=== PATIENT | male | born 1965 | race Caucasian/White ===

== ENCOUNTER 2018-10-21 11:31 | Emergency (ER) | payer SELFPAY ==
[~2018-10-21] VITALS: Ht 188 cm; Wt 95.3 kg
[2018-10-21 11:48] VITALS: BP 127/86
[2018-10-21 15:00] LABS: Basophils # (auto) 0 uL; Basophils % (auto) 0.8 % (0.0-2.0); Eosinophils # (auto) 0.2 uL; Eosinophils % (auto) 2.6 % (0.0-7.0); Hematocrit 43.1 % (41.0-53.0); Hemoglobin 14.4 g/dL (13.5-17.5); Lymphocytes # (auto) 1.3 uL; Mean Corpuscular Hemoglobin 30.1 pg (28.0-32.0); Mean Corpuscular Hgb Conc. 33.4 g/dL (32.0-36.0); Mean Corpuscular Volume 90.2 fL (80.0-100.0); Monocytes # (auto) 0.5 uL; Monocytes % (auto) 8.3 % (0.0-12.0); Neutrophils # (auto) 3.8 uL; Neutrophils % (auto) 65.3 % (37.0-80.0); Nucleated Red Blood Cells % 0.1 %; Platelet Count (auto) 269 10^3/uL (140-450); Red Blood Cells 4.77 10^6/uL (4.5-5.90); Red Cell Distribution Width 14.7 % (11.8-14.3); White Blood Cell 5.8 10^3/uL (4.4-10.8)
[2018-10-21 15:20] LABS: Albumin 3.3 g/dL (3.4-5.0); Anion Gap 3 (5-15); Blood Urea Nitrogen 22 mg/dL (7-18); Calcium 8.2 mg/dL (8.5-10.1); Carbon Dioxide 26 mmol/L (21-32); Chloride 109 mmol/L (98-107); Glucose 126 mg/dL (74-106); Potassium 4.6 mmol/L (3.5-5.1); Sodium 138 mmol/L (136-145)
[2018-10-21 15:27] LABS: Alanine Aminotransferase 19 U/L (16-61); Alkaline Phosphatase 155 U/L (45-117); Aspartate Aminotransferase 19 U/L (15-37); BUN/Creatinine Ratio 10.1; Bilirubin, Total 0.3 mg/dL (0.2-1.0); GFR African American 41 mL/min; GFR Non-African American 34 mL/min; Total Protein 7.3 g/dL (6.4-8.2)
== END 2018-10-21 23:40 | disposition left against medical advice (07) ==
LOC: ER 11:31
CPT/HCPCS: 36415; 74176; 80053; 84484; 85025

== ENCOUNTER 2018-11-11 12:30 | Emergency (ER) | payer MEDICAID ==
[~2018-11-11] VITALS: Ht 188 cm; Wt 95.3 kg
[2018-11-11 12:45] VITALS: BP 108/73
== END 2018-11-11 16:23 | disposition left against medical advice (07) ==
LOC: ER 12:30
DX: R03.0 Elevated blood-pressure reading, without diagnosis of hypertension (principal); R73.9 Hyperglycemia, unspecified; Z53.21 Procedure and treatment not carried out due to patient leaving prior to being seen by health care provider
CPT/HCPCS: 82962

== ENCOUNTER 2018-12-16 13:05 | Inpatient (IN) | payer MEDICAID | END 2018-12-29 00:20 | disposition short-term general hospital (02) | LOC: ICU WEST 12-17 00:29 → TELE-EAST 12-24 10:53 → WEST WING 12-25 11:45 → ER 13:05 → TELE-WESTW 12-24 20:05 → TELE 17:11 | PROC: 5A1945Z Respiratory Ventilation, 24-96 Consecutive Hours (ICD-10-PCS; 2018-12-18 10:15) | PROC: 0BH17EZ Insertion of Endotracheal Airway into Trachea, Via Natural or Artificial Opening (ICD-10-PCS; 2018-12-18 10:15) | PROC: 0DJD8ZZ Inspection of Lower Intestinal Tract, Via Natural or Artificial Opening Endoscopic (ICD-10-PCS; 2018-12-18 10:15) | PROC: 0DJ08ZZ Inspection of Upper Intestinal Tract, Via Natural or Artificial Opening Endoscopic (ICD-10-PCS; principal; 2018-12-18 12:10) | DX: J96.00 Acute respiratory failure, unspecified whether with hypoxia or hypercapnia (principal); R57.8 Other shock; A41.01 Sepsis due to Methicillin susceptible Staphylococcus aureus; E43 Unspecified severe protein-calorie malnutrition; K85.80 Other acute pancreatitis without necrosis or infection; J18.9 Pneumonia, unspecified organism; E11.22 Type 2 diabetes mellitus with diabetic chronic kidney disease; K92.2 Gastrointestinal hemorrhage, unspecified; E11.8 Type 2 diabetes mellitus with unspecified complications; E83.51 Hypocalcemia; K31.84 Gastroparesis; N18.3 Chronic kidney disease, stage 3 (moderate); D50.0 Iron deficiency anemia secondary to blood loss (chronic); I12.9 Hypertensive chronic kidney disease with stage 1 through stage 4 chronic kidney disease, or unspecified chronic kidney disease; F20.9 Schizophrenia, unspecified ==

== ENCOUNTER 2020-05-01 15:34 | Inpatient (IN) | payer MEDICAID ==
[~2020-05-01] VITALS: Ht 188 cm; Wt 85.5 kg
[~2020-05-01 15:34] MED LIST: ALBU1AER4 IN; BENA20TA14 PO; DULO20CA PO; GABA-339 PO; INSLANTI SC; INSLISPI SC; MECL25TA18 PO; PANT40TA2 PO
[2020-05-01 18:27] LABS: Basophils # (auto) 0.1 10 ^3/uL (0-0.2); Basophils % (auto) 1.1 % (0.0-2.0); Eosinophils # (auto) 0.2 10 ^3/uL (0-0.8); Eosinophils % (auto) 3.1 % (0.0-7.0); Hematocrit 30.2 % (41.0-53.0); Hemoglobin 9.9 g/dL (13.5-17.5); Mean Corpuscular Hemoglobin 29.8 pg (28.0-32.0); Mean Corpuscular Hgb Conc. 32.7 g/dL (32.0-36.0); Monocytes # (auto) 0.3 10 ^3/uL (0-1.3); Monocytes % (auto) 5.1 % (0.0-12.0); Neutrophils % (auto) 72.7 % (37.0-80.0); Platelet Count (auto) 280 10^3/uL (140-450); Red Blood Cells 3.32 10^6/uL (4.5-5.90); White Blood Cell 5.5 10^3/uL (4.4-10.8)
[2020-05-01 18:34] LABS: Albumin 3.5 g/dL (3.4-5.0); Anion Gap 10 (5-15); Blood Urea Nitrogen 69 mg/dL (7-18); Calcium 8.3 mg/dL (8.5-10.1); Carbon Dioxide 19 mmol/L (21-32); Chloride 100 mmol/L (98-107); Magnesium 2.2 mg/dL (1.6-2.6); Sodium 129 mmol/L (136-145)
[2020-05-01 18:37] LABS: Alanine Aminotransferase 27 U/L (16-61); Aspartate Aminotransferase 17 U/L (15-37); Bilirubin, Total 0.4 mg/dL (0.2-1.0); GFR African American 23 mL/min; GFR Non-African American 19 mL/min
[2020-05-01 18:43] LABS: Alkaline Phosphatase 141 U/L (45-117)
[2020-05-01 18:49] LABS: Potassium 6.4 mmol/L (3.5-5.1)
[2020-05-01 18:51] LABS: BUN/Creatinine Ratio 19.5; Glucose 608 mg/dL (74-106)
[2020-05-01] MEDS ORDERED: CALCIUM GLUC 4.65meq/50ml D5AE 50 ML IV ONE (22:00)
[2020-05-01] MEDS ORDERED: SODIUM BICARBONATE 8.4 % INJ 50ML VIAL IV ONE (22:00)
[2020-05-01] MEDS ORDERED: InsuLIN REG 1unit/0.01ml Soln (100units/ml) IV ONE (22:00)
[2020-05-01] MEDS ORDERED: SODIUM CHLORIDE 0.9% 1,000 ML IV ONE (22:00)
[2020-05-01] MEDS ORDERED: SODIUM ZIRCONIUM CYCL 10 GM PAK PO ONE (22:00)
[2020-05-01] MEDS ORDERED: ACETAMINOPHEN 325 MG TAB PO PRN (22:00)
[2020-05-01] MEDS ORDERED: TEMAZEPAM 15 MG CAP PO PRN (22:00)
[2020-05-01] MEDS ORDERED: DEXTROSE (50%) 50ML SYRG IV PRN (22:00)
[2020-05-01] MEDS ORDERED: cefTRIAXone 1GM/50ML D5W 50 ML IV ONE (22:00)
[2020-05-01] MEDS ORDERED: AZITHROMYCIN 500MG/ 250ML 250 ML IV ONE (22:00)
[2020-05-01] MEDS: ATORVASTATIN 20 MG TAB PO SCH (22:51)
[2020-05-01] MEDS: GABAPENTIN 300 MG CAP PO SCH (23:05)
[2020-05-01 23:09] LABS: Urine Bacteria NONE SEEN /hpf (None Seen); Urine Blood Negative /uL (Negative); Urine Specific Gravity 1.014 (1.001-1.035); Urine WBC 1 /hpf (0 - 3)
[2020-05-01] MEDS: SODIUM CHLORIDE 0.9% 1,000 ML IV SCH (23:13)
[2020-05-01] MEDS: ONDANSETRON HCL 4 MG/2 ML VIAL IV PRN (23:32)
[2020-05-01] MEDS: MORPHINE SULF INJ 2 MG/ML SYRINGE 1ML IV PRN (23:33)
[2020-05-02] MEDS: ACCU-CHEK COMFORT CURVE STRIP VI SCH ×3 (00:07→08:00)
[2020-05-02] MEDS: InsuLIN REG 1unit/0.01ml Soln (100units/ml) SC SCH ×3 (00:08→08:00)
[2020-05-02] MEDS: MORPHINE SULF INJ 2 MG/ML SYRINGE 1ML IV PRN ×2 (03:29→03:39)
[2020-05-02] MEDS: ONDANSETRON HCL 4 MG/2 ML VIAL IV PRN ×2 (03:29→03:39)
[2020-05-02 05:27] LABS: Eosinophils # (auto) 0.2 10 ^3/uL (0-0.8); Lymphocytes # (auto) 1.3 10 ^3/uL (0.4-5.4); Mean Corpuscular Volume 87.8 fL (80.0-100.0); Monocytes # (auto) 0.4 10 ^3/uL (0-1.3)
[2020-05-02 05:29] LABS: Basophils # (auto) 0 10 ^3/uL (0-0.2); Basophils % (auto) 0.8 % (0.0-2.0); Hematocrit 23.5 % (41.0-53.0); Mean Corpuscular Hgb Conc. 34.2 g/dL (32.0-36.0); Monocytes % (auto) 8.8 % (0.0-12.0); Neutrophils # (auto) 2.4 10 ^3/uL (1.6-8.6); Neutrophils % (auto) 55.4 % (37.0-80.0); Platelet Count (auto) 248 10^3/uL (140-450); Red Blood Cells 2.67 10^6/uL (4.5-5.90); Red Cell Distribution Width 14.9 % (11.8-14.3); White Blood Cell 4.3 10^3/uL (4.4-10.8)
[2020-05-02] MEDS: GABAPENTIN 300 MG CAP PO SCH ×3 (05:31→23:06)
[2020-05-02 05:52] LABS: Anion Gap 6 (5-15); Blood Urea Nitrogen 72 mg/dL (7-18); Calcium 8.4 mg/dL (8.5-10.1); Carbon Dioxide 23 mmol/L (21-32); Chloride 108 mmol/L (98-107); Glucose 224 mg/dL (74-106); Potassium 4.1 mmol/L (3.5-5.1); Sodium 137 mmol/L (136-145)
[2020-05-02 05:57] LABS: BUN/Creatinine Ratio 21.8; GFR African American 25 mL/min; GFR Non-African American 21 mL/min
[2020-05-02] MEDS: cefTRIAXone 1GM/50ML D5W 50 ML IV SCH (09:00)
[2020-05-02] MEDS ORDERED: ASPirin 81 mg TAB PO SCH (10:00)
[2020-05-02] MEDS: NIFEdipine ER 30 MG TAB PO SCH (10:00)
[2020-05-02] MEDS: AZITHROMYCIN 500MG/ 250ML 250 ML IV SCH (10:00)
[2020-05-02] MEDS: DULoxetine HCL 30 MG CAP PO SCH (10:00)
[2020-05-02] MEDS ORDERED: PANTOPRAZOLE 40 MG TAB PO SCH (10:00)
[2020-05-02] MEDS: PANTOPRAZOLE 40 MG TAB PO SCH (10:00)
[2020-05-02] MEDS: SODIUM CHLORIDE 0.9% 1,000 ML IV SCH (11:22)
[2020-05-02] MEDS ORDERED: ACETAMINOPHEN 325 MG TAB PO PRN (11:45)
[2020-05-02] MEDS ORDERED: DEXTROSE (50%) 50ML SYRG IV PRN ×3 (11:45→23:15)
[2020-05-02] MEDS ORDERED: INSU1INJ19 SC (15:31)
[2020-05-02] MEDS ORDERED: INSU100I44 SC (15:31)
[2020-05-02] MEDS ORDERED: GABA800T97 PO (15:31)
[2020-05-02] MEDS ORDERED: DULO1CAP5 PO (15:31)
[2020-05-02] MEDS ORDERED: NIFE1TAB30 PO (15:33)
[2020-05-02] MEDS ORDERED: FINA5TAB4 PO (15:34)
[2020-05-02] MEDS ORDERED: ATOR40TA52 PO (15:34)
[2020-05-02] MEDS ORDERED: TAMS0.4C36 PO (15:34)
[2020-05-02] MEDS ORDERED: HYDR1CAP27 PO (15:35)
[2020-05-02] MEDS ORDERED: CHOL20007 PO (15:36)
[2020-05-02] MEDS ORDERED: ASPI-266 PO (15:36)
[2020-05-02] MEDS ORDERED: MULT-928 PO (15:37)
[2020-05-02] MEDS ORDERED: DIVA1TAB37 PO (15:38)
[2020-05-02] MEDS ORDERED: AMLO10TA13 PO (15:38)
[2020-05-02] MEDS ORDERED: SERT-275 PO (15:38)
[2020-05-02] MEDS ORDERED: CLOP75TA41 PO (15:39)
[2020-05-02] MEDS ORDERED: LORA0.5T20 PO (15:39)
[2020-05-02] MEDS ORDERED: LISI-648 PO (15:39)
[2020-05-02] MEDS ORDERED: TRAZ100T3 PO (15:40)
[2020-05-02] MEDS ORDERED: FLUT50SP (15:41)
[2020-05-02] MEDS ORDERED: NITR0.4S29 SL (15:42)
[2020-05-02] MEDS ORDERED: ONDA-155 PO (15:44)
[2020-05-02] MEDS ORDERED: SODIUM CHLORIDE 0.9% 1,000 ML IV SCH (16:15)
[2020-05-02] MEDS ORDERED: InsuLIN REG 1unit/0.01ml Soln (100units/ml) SC SCH ×2 (17:00→20:00)
[2020-05-02] MEDS ORDERED: ACCU-CHEK COMFORT CURVE STRIP VI SCH ×2 (17:00→20:00)
[2020-05-02] MEDS ORDERED: INSULIN LANTUS (GLARGINE) 1 /0.01ml (100units/ml) SC ONE (18:15)
[2020-05-02] MEDS: HYDROcodone-ACET 5/325MG TAB PO PRN ×2 (18:55→22:04)
[2020-05-02] MEDS: TAMSULOSIN HYDROCHLORIDE 0.4 MG CAP PO SCH (18:57)
[2020-05-02] MEDS: ATORVASTATIN 20 MG TAB PO SCH (23:05)
[2020-05-02] MEDS ORDERED: SODIUM CHLORIDE 0.9% 1,000 ML IV ONE (23:15)
[2020-05-02] MEDS ORDERED: InsuLIN R (HUMAN) 100 UNITS in SODIUM CHL 0.9% 99 ML IV SCH (23:15)
[2020-05-03] MEDS: ACCU-CHEK COMFORT CURVE STRIP VI SCH ×9 (00:34→22:08)
[2020-05-03] MEDS ORDERED: INSULIN LANTUS (GLARGINE) 1 /0.01ml (100units/ml) SC ONE (01:45)
[2020-05-03] MEDS ORDERED: DEXTROSE (50%) 50ML SYRG IV PRN (01:45)
[2020-05-03] MEDS: MORPHINE SULF INJ 2 MG/ML SYRINGE 1ML IV PRN ×2 (03:55→06:39)
[2020-05-03] MEDS: GABAPENTIN 300 MG CAP PO SCH ×3 (06:17→21:50)
[2020-05-03] MEDS: InsuLIN REG 1unit/0.01ml Soln (100units/ml) SC SCH ×4 (06:20→22:03)
[2020-05-03 08:27] LABS: Basophils # (auto) 0.1 10 ^3/uL (0-0.2); Lymphocytes # (auto) 1.6 10 ^3/uL (0.4-5.4); Monocytes # (auto) 0.4 10 ^3/uL (0-1.3)
[2020-05-03 08:31] LABS: Basophils % (auto) 1.3 % (0.0-2.0); Eosinophils # (auto) 0.2 10 ^3/uL (0-0.8); Eosinophils % (auto) 4.3 % (0.0-7.0); Hematocrit 24.2 % (41.0-53.0); Hemoglobin 8.1 g/dL (13.5-17.5); Lymphocytes % (auto) 27.2 % (10.0-50.0); Mean Corpuscular Hemoglobin 29.9 pg (28.0-32.0); Mean Corpuscular Hgb Conc. 33.6 g/dL (32.0-36.0); Mean Corpuscular Volume 89.1 fL (80.0-100.0); Monocytes % (auto) 7.3 % (0.0-12.0); Neutrophils # (auto) 3.5 10 ^3/uL (1.6-8.6); Neutrophils % (auto) 59.9 % (37.0-80.0); Nucleated Red Blood Cells % 0.1 %; Platelet Count (auto) 266 10^3/uL (140-450); Red Blood Cells 2.72 10^6/uL (4.5-5.90); Red Cell Distribution Width 15.3 % (11.8-14.3); White Blood Cell 5.8 10^3/uL (4.4-10.8)
[2020-05-03 08:55] LABS: Calcium 8.4 mg/dL (8.5-10.1)
[2020-05-03] MEDS: cefTRIAXone 1GM/50ML D5W 50 ML IV SCH (09:45)
[2020-05-03] MEDS: PANTOPRAZOLE 40 MG TAB PO SCH (10:00)
[2020-05-03] MEDS ORDERED: INSULIN LANTUS (GLARGINE) 1 /0.01ml (100units/ml) SC SCH (10:00)
[2020-05-03] MEDS: AZITHROMYCIN 500MG/ 250ML 250 ML IV SCH (10:20)
[2020-05-03] MEDS: NIFEdipine ER 30 MG TAB PO SCH (10:29)
[2020-05-03] MEDS: DULoxetine HCL 30 MG CAP PO SCH (10:29)
[2020-05-03] MEDS: ASPirin 81 mg TAB PO SCH (10:29)
[2020-05-03] MEDS: INSULIN LANTUS (GLARGINE) 1 /0.01ml (100units/ml) SC SCH (11:12)
--- NOTE | 2020-05-03 14:20 | NUR ---
Telemetry admit from [facility] admitted to Telemetry unit after SBAR received. Patient oriented to Jeni Erazo, primary RN, unit, room, bed, and unit policies regarding patient care and visiting hours. Patient now on continuous telemetry monitoring, tele box #60 and telemetry reading on arrival to unit is SR. Patient placed on bedside oxygen, weighed by bedscale and encouraged to call if they need something. All questions and concerns addressed, patient verbalized understanding. No c/o pain, no s/s of distress/sob noted/stated.
[2020-05-03] MEDS ORDERED: FUROSEMIDE 20 MG/2 ML VIAL IV ONE (16:45)
[2020-05-03] MEDS ORDERED: FUROSEMIDE 100 MG/10ML VIAL IV ONE (16:45)
--- NOTE | 2020-05-03 16:55 | NUR ---
Collected MRSA swab from left/right nare. sent to lab via bullet system. Collected and sent Urine specimen to lab via bullet system.
[2020-05-03 17:00] VITALS: BP 113/66
[2020-05-03] MEDS: TAMSULOSIN HYDROCHLORIDE 0.4 MG CAP PO SCH (18:00)
[2020-05-03 19:31] LABS: Alcohol, Urine < 3.0 mg/dL (0-10); Amphetamine Screen, Urine NEGATIVE (NEGATIVE); Barbiturate Scree,Urine NEGATIVE (NEGATIVE); Benzodiazephine Screen, Urine NEGATIVE (NEGATIVE); Cannabinoid Screen, Urine POSITIVE (NEGATIVE); Cocaine Screen, Urine NEGATIVE (NEGATIVE); Phencyclidine Screen, Urine NEGATIVE (NEGATIVE)
--- NOTE | 2020-05-03 19:34 | NUR ---
Closing Note Endorsed care to NOC RN. No s/s of distress/sob or pain noted.
[2020-05-03 19:38] LABS: Opiate Scree,Urine POSITIVE (NEGATIVE)
[2020-05-03 20:00] VITALS: BP 132/75
[2020-05-03 20:01] LABS: Calcium 8.1 mg/dL (8.5-10.1); Potassium 4.7 mmol/L (3.5-5.1)
[2020-05-03] MEDS: ATORVASTATIN 20 MG TAB PO SCH (21:50)
[2020-05-03] MEDS: HYDROcodone-ACET 5/325MG TAB PO PRN (21:51)
--- NOTE | 2020-05-03 21:57 | NUR ---
Pt refusing to wait until MN for BG check. Fingerstick done; BG 183. Insulin 4 units given per sliding scale.
[2020-05-03 22:00] VITALS: BP 132/75
[2020-05-04] VITALS (7 sets, daily range): BP systolic 133–156; BP diastolic 79–101
[2020-05-04] MEDS: InsuLIN REG 1unit/0.01ml Soln (100units/ml) SC SCH ×3 (06:00→17:13)
[2020-05-04] MEDS: GABAPENTIN 300 MG CAP PO SCH ×3 (06:00→21:42)
[2020-05-04] MEDS: ACCU-CHEK COMFORT CURVE STRIP VI SCH ×4 (06:00→23:59)
[2020-05-04 06:30] LABS: Basophils # (auto) 0 10 ^3/uL (0-0.2); Eosinophils # (auto) 0.3 10 ^3/uL (0-0.8); Eosinophils % (auto) 6.1 % (0.0-7.0); Hematocrit 25.2 % (41.0-53.0); Hemoglobin 8.5 g/dL (13.5-17.5); Lymphocytes # (auto) 1.2 10 ^3/uL (0.4-5.4); Lymphocytes % (auto) 25.1 % (10.0-50.0); Mean Corpuscular Hemoglobin 30.3 pg (28.0-32.0); Mean Corpuscular Hgb Conc. 33.9 g/dL (32.0-36.0); Mean Corpuscular Volume 89.3 fL (80.0-100.0); Monocytes # (auto) 0.4 10 ^3/uL (0-1.3); Monocytes % (auto) 9.3 % (0.0-12.0); Neutrophils # (auto) 2.7 10 ^3/uL (1.6-8.6); Neutrophils % (auto) 58.5 % (37.0-80.0); Platelet Count (auto) 239 10^3/uL (140-450); Red Blood Cells 2.82 10^6/uL (4.5-5.90); Red Cell Distribution Width 15.6 % (11.8-14.3); White Blood Cell 4.7 10^3/uL (4.4-10.8)
[2020-05-04 06:52] LABS: Calcium 8.4 mg/dL (8.5-10.1); Potassium 4.7 mmol/L (3.5-5.1)
--- NOTE | 2020-05-04 06:54 | NUR ---
Another RN checked pt's BG again as pt c/o feeling nauseous and light headed. This RN with pt having cardiac difficulties. This pt's BG now 76.
[2020-05-04 06:56] LABS: BUN/Creatinine Ratio 18.3
--- NOTE | 2020-05-04 06:59 | NUR ---
This RN called to pt's room/ his statement to another RN that he felt his BG is low. This RN entered room and pt stated he keeps his personal glucometer with him and he had found his BG was 53. This RN checked BG with hospital glucometer and registered 61. 8 oz OJ with 2 packets sugar given to pt. Pt drank juice immediately.
--- NOTE | 2020-05-04 07:49 | NUR ---
Opening Shift Note Assumed care of patient, awake and alertx4. Patient sitting on the edge of the bed, eating breakfast. No S/S of distress/SOB . Patient c/o of pain, rates it a7. Will medicate per MD orders. Instructed on POC and to call for assist PRN. Bed at lowest locked position and call light within reach. Will continue to monitor for changes Q1hr and Prn.
[2020-05-04] MEDS: DULoxetine HCL 30 MG CAP PO SCH (08:01)
[2020-05-04] MEDS: ASPirin 81 mg TAB PO SCH (08:01)
[2020-05-04] MEDS: HYDROcodone-ACET 5/325MG TAB PO PRN ×2 (08:01→15:15)
[2020-05-04] MEDS: NIFEdipine ER 30 MG TAB PO SCH (08:01)
[2020-05-04] MEDS: PANTOPRAZOLE 40 MG TAB PO SCH (08:01)
[2020-05-04] MEDS: AZITHROMYCIN 500MG/ 250ML 250 ML IV SCH (08:02)
[2020-05-04] MEDS: cefTRIAXone 1GM/50ML D5W 50 ML IV SCH (08:02)
[2020-05-04] MEDS: ONDANSETRON HCL 4 MG/2 ML VIAL IV PRN (08:09)
--- NOTE | 2020-05-04 08:30 | NUR ---
[facility]
[2020-05-04] MEDS: INSULIN LANTUS (GLARGINE) 1 /0.01ml (100units/ml) SC SCH (08:40)
--- NOTE | 2020-05-04 17:30 | NUR ---
Patient is refusing Accu checks and 1800 medication. he states, : "I don't want it, I don't need it". patient educated on importance of medication. Patient acknowledged understanding, Still refusing.
[2020-05-04] MEDS: TAMSULOSIN HYDROCHLORIDE 0.4 MG CAP PO SCH (18:00)
--- NOTE | 2020-05-04 19:10 | NUR ---
OPENING NOTE Assumed care of patient at 1900. Respiratory sounds clear, equal bilaterally and unlabored. Patient verbalized a discomfort level of 2 out of 10. However patient verbalized that this is tolerable at this time. Updated patient on POC. Bed locked in lowest position, side rails up x 2 HOB elevated at least 30 degrees and call light is within reach. Will continue to monitor.
--- NOTE | 2020-05-04 19:15 | NUR ---
OPENING NOTE Assumed care of patient at 1900. Patient's respirations equal and unlabored. Patient is resting with eyes closed at this time. Bed locked in lowest position, HOB elevated at least 30 degrees, side rails up x 2 and call light is within reach. Will continue to monitor.
--- NOTE | 2020-05-04 19:22 | NUR ---
closing note endorsed car to NOC RN.
[2020-05-04] MEDS: NITROGLYCERIN 0.4 MG SL TAB SL PRN ×3 (20:25→20:36)
[2020-05-04] MEDS: MORPHINE SULF INJ 2 MG/ML SYRINGE 1ML IV PRN (20:48)
[2020-05-04] MEDS: ATORVASTATIN 20 MG TAB PO SCH (21:42)
--- NOTE | 2020-05-04 23:04 | NUR ---
ACCU-CHECK REFUSAL Patient refused accu-check. Educated patient x 3 on importance of monitoring blood sugar however patient still reused x 3.
[2020-05-05] VITALS (7 sets, daily range): BP systolic 113–142; BP diastolic 72–85
[2020-05-05] MEDS: HYDROcodone-ACET 5/325MG TAB PO PRN (00:31)
[2020-05-05] MEDS: ACCU-CHEK COMFORT CURVE STRIP VI SCH ×3 (06:00→18:00)
[2020-05-05] MEDS: InsuLIN REG 1unit/0.01ml Soln (100units/ml) SC SCH ×4 (06:00→18:53)
[2020-05-05 06:41] LABS: Basophils # (auto) 0 10 ^3/uL (0-0.2); Basophils % (auto) 0.9 % (0.0-2.0); Eosinophils # (auto) 0.3 10 ^3/uL (0-0.8); Eosinophils % (auto) 6.7 % (0.0-7.0); Hematocrit 26.4 % (41.0-53.0); Hemoglobin 8.9 g/dL (13.5-17.5); Lymphocytes # (auto) 0.9 10 ^3/uL (0.4-5.4); Lymphocytes % (auto) 23.5 % (10.0-50.0); Mean Corpuscular Hemoglobin 29.8 pg (28.0-32.0); Mean Corpuscular Hgb Conc. 33.6 g/dL (32.0-36.0); Mean Corpuscular Volume 88.8 fL (80.0-100.0); Monocytes # (auto) 0.4 10 ^3/uL (0-1.3); Monocytes % (auto) 10.4 % (0.0-12.0); Neutrophils # (auto) 2.3 10 ^3/uL (1.6-8.6); Neutrophils % (auto) 58.5 % (37.0-80.0); Platelet Count (auto) 238 10^3/uL (140-450); Red Blood Cells 2.97 10^6/uL (4.5-5.90); Red Cell Distribution Width 15.1 % (11.8-14.3); White Blood Cell 3.9 10^3/uL (4.4-10.8)
[2020-05-05] MEDS: GABAPENTIN 300 MG CAP PO SCH ×3 (06:44→23:26)
[2020-05-05] MEDS: INSULIN LANTUS (GLARGINE) 1 /0.01ml (100units/ml) SC SCH (06:46)
--- NOTE | 2020-05-05 06:47 | NUR ---
PATIENT REFUSED ACCU CHECK Patient refused accu-check. Educated patient x 3 on importance of checking blood sugar however patient still refused.
[2020-05-05 07:03] LABS: Potassium 4.4 mmol/L (3.5-5.1)
[2020-05-05 07:06] LABS: BUN/Creatinine Ratio 16.6
--- NOTE | 2020-05-05 07:30 | NUR ---
CLOSING NOTE Endorsed care to adela RUIZ.
--- NOTE | 2020-05-05 07:36 | NUR ---
Received a call from patient's mother Julia, . she is crying stating her son just told her he was going to kill himself.This nurse went in the room to check on the patient. patient stated "I am going to kill myself", what is your plan? "I am going to take a bunch of pills, its easy". Tele-psych ordered, Charge nurse notified. Patient does not seem to be in any distress at the moment, he is quiet and upset. Will continue to monitor. Addendum: 05/05/20 at 0809 by Jeni Erazo RN tele-psych computer in the patient's room.
--- NOTE | 2020-05-05 08:50 | NUR ---
Patient off floor for procedure
--- NOTE | 2020-05-05 09:46 | NUR ---
spoke to Kevin one of the Techs from tele-psych support. This nurse requested the tele-psych report. [phone]. awaiting for report to be faxed over to me. Addendum: 05/05/20 at 1141 by Jeni Erazo RN no report received. called again, spoke to Frances. awaiting fax report
[2020-05-05] MEDS: cefTRIAXone 1GM/50ML D5W 50 ML IV SCH (11:43)
[2020-05-05] MEDS: ASPirin 81 mg TAB PO SCH (11:44)
[2020-05-05] MEDS: DULoxetine HCL 30 MG CAP PO SCH (11:44)
[2020-05-05] MEDS: AZITHROMYCIN 500MG/ 250ML 250 ML IV SCH (11:44)
[2020-05-05] MEDS: NIFEdipine ER 30 MG TAB PO SCH (11:45)
[2020-05-05] MEDS: PANTOPRAZOLE 40 MG TAB PO SCH (11:46)
--- NOTE | 2020-05-05 12:07 | NUR ---
left message for Tello Church, awaiting call back.
--- NOTE | 2020-05-05 12:47 | NUR ---
Cardiology Called Dr. Chung, regarding patients medical clearance, per Dr. Chavez Awaiting call back. Addendum: 05/05/20 at 1258 by Jeni Erazo RN Dr. Chung has cleared the patient from cardiology standpoint.
--- NOTE | 2020-05-05 12:51 | NUR ---
Nephrology Called Dr. De, requesting medical clearance per Dr. Moqattash. Guerra, awaiting call back. Addendum: 05/05/20 at 2157 by Jeni Erazo RN Dr. De has cleared patient from nephrology standpoint.
--- NOTE | 2020-05-05 14:34 | NUR ---
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 Addendum: 05/05/20 at [address] Amended: Links added.
--- NOTE | 2020-05-05 17:33 | NUR ---
Dr. Praneeth Reich at bedside
[2020-05-05] MEDS: TAMSULOSIN HYDROCHLORIDE 0.4 MG CAP PO SCH (18:53)
[2020-05-05] MEDS: ATORVASTATIN 20 MG TAB PO SCH (23:26)
[2020-05-06] MEDS: InsuLIN REG 1unit/0.01ml Soln (100units/ml) SC SCH ×5 (01:28→23:48)
--- NOTE | 2020-05-06 03:18 | NUR ---
Closing Note Care endorsed to SARA Younger. Eddie
--- NOTE | 2020-05-06 03:30 | NUR ---
ASSUMED CARE ASSUMED CARE OF PATIENT. PATIENT ASLEEP, EVEN UNLABORED RESPIRATIONS. WILL CONTINUE TO MONITOR
[2020-05-06] MEDS: HYDROcodone-ACET 5/325MG TAB PO PRN ×2 (04:43→21:00)
--- NOTE | 2020-05-06 04:52 | NUR ---
05/05/2020 2245- Dr Javed came to talk to patient about his psych hold, patient stated to dr that he still felt like he wanted to harm himself. Patient also stated that he felt like Dr Javed was rude to him the day before regarding patients prostate. Dr Javed then informed patient that raf had not talked about patients prostate, that patient had discussed his prostate with Dr Reich, not Dr Javed.
[2020-05-06 05:00] VITALS: BP 119/65
--- NOTE | 2020-05-06 06:13 | NUR ---
JONES JONES CATHETER REMOVED PER MD ORDERS. APPROXIMATELY 350 ML CLEAR PALE URINE EMPTIED WITH JONES. PATIENT EDUCATED ON IMPORTANCE OF INFORMING LEGAL SERVICES MANAGER MANAGER CLINIC OF WHEN HE URINATES. PATIENT VERBALIZED UNDERSTANDING. TRINITY HERBERT MADE AWARE. WILL CONTINUE TO MONITOR
[2020-05-06] MEDS: ACCU-CHEK COMFORT CURVE STRIP VI SCH ×5 (06:15→23:48)
[2020-05-06] MEDS: GABAPENTIN 300 MG CAP PO SCH ×3 (06:15→21:52)
[2020-05-06] MEDS: INSULIN LANTUS (GLARGINE) 1 /0.01ml (100units/ml) SC SCH (06:16)
[2020-05-06 08:00] VITALS: BP 151/82
[2020-05-06] MEDS: AZITHROMYCIN 500MG/ 250ML 250 ML IV SCH ×3 (10:00→14:33)
[2020-05-06] MEDS: DULoxetine HCL 30 MG CAP PO SCH (10:40)
[2020-05-06] MEDS: cefTRIAXone 1GM/50ML D5W 50 ML IV SCH (10:40)
[2020-05-06] MEDS: ASPirin 81 mg TAB PO SCH (10:40)
[2020-05-06] MEDS: PANTOPRAZOLE 40 MG TAB PO SCH (10:42)
[2020-05-06] MEDS: NIFEdipine ER 30 MG TAB PO SCH (10:42)
--- NOTE | 2020-05-06 12:55 | NUR ---
Continuation of care: Received report on patient. Patient resting in bed. No S/S of distress. Sitter at bedside.
[2020-05-06 13:00] VITALS: BP 162/89
--- NOTE | 2020-05-06 13:43 | NUR ---
Roy catheter insertion: Patient assessed and determined to be in need of Roy catheter. Order obtained from MD. Patient educated on catheter and reason for insertion. All questions answered. Roy catheter 14 gauge American inserted with clean sterile technique. Patient tolerated well. 200 mL pale urine drained
--- NOTE | 2020-05-06 14:15 | NUR ---
Per. Dr. Eddie Javed request, tele psych performed. Awaiting report. Will update
[2020-05-06 17:00] VITALS: BP 149/89
--- NOTE | 2020-05-06 17:32 | NUR ---
Called for tele psych report. Awaiting fax.
[2020-05-06] MEDS: TAMSULOSIN HYDROCHLORIDE 0.4 MG CAP PO SCH (17:42)
--- NOTE | 2020-05-06 17:49 | NUR ---
received report from [facility].
--- NOTE | 2020-05-06 18:11 | NUR ---
Called and left message for Dr. Eddie Javed regarding report. Awaiting call back.
--- NOTE | 2020-05-06 18:52 | NUR ---
CLOSING NOTE: Patient resting in bed. No S/S of distress at this time. Sitter at bedside for patient safety. Care endorsed to NIDA RN.
--- NOTE | 2020-05-06 21:20 | NUR ---
Patient stated he was feeling weak and clammy. Checked blood sugar and was 30 and 33 upon recheck. Gave patient juice with milk and administered D50 per protocol. Paged Dr. Rosas and received new orders from Dr. Villalobos to change coverage to Q4hr Accu checks on a mild scale. Will change orders and continue to monitor.
[2020-05-06] MEDS: ATORVASTATIN 20 MG TAB PO SCH (21:52)
[2020-05-06] MEDS: MIRTAZAPINE 30 MG TAB PO SCH (21:52)
[2020-05-06 22:00] VITALS: BP 137/68
[2020-05-06] MEDS ORDERED: DEXTROSE (50%) 50ML SYRG IV PRN (22:30)
[2020-05-07] MEDS: HYDROcodone-ACET 5/325MG TAB PO PRN ×2 (01:17→20:09)
[2020-05-07] MEDS: ACCU-CHEK COMFORT CURVE STRIP VI SCH ×5 (03:30→20:08)
[2020-05-07] MEDS: InsuLIN REG 1unit/0.01ml Soln (100units/ml) SC SCH ×5 (03:38→20:00)
[2020-05-07 05:01] VITALS: BP 131/78
[2020-05-07] MEDS: GABAPENTIN 300 MG CAP PO SCH ×3 (06:32→22:24)
[2020-05-07] MEDS: INSULIN LANTUS (GLARGINE) 1 /0.01ml (100units/ml) SC SCH (06:33)
[2020-05-07 07:01] LABS: Potassium 4.6 mmol/L (3.5-5.1)
[2020-05-07 07:20] LABS: Albumin 2.6 g/dL (3.4-5.0); BUN/Creatinine Ratio 17.5; Bilirubin, Total 0.2 mg/dL (0.2-1.0); Calcium 8.2 mg/dL (8.5-10.1); Phosphorus 3.6 mg/dL (2.5-4.90); Total Protein 6.5 g/dL (6.4-8.2)
--- NOTE | 2020-05-07 07:25 | NUR ---
Opening Shift Note Assumed care of patient, awake and alert. No S/S of distress/SOB or pain. Instructed on POC and to call for assist PRN, will continue to monitor for changes Q1hr and PRN. Bed locked in lowest position with two side rails up and call light in reach.
[2020-05-07] MEDS: cefTRIAXone 1GM/50ML D5W 50 ML IV SCH (08:23)
[2020-05-07 09:00] VITALS: BP 131/88
--- NOTE | 2020-05-07 09:52 | NUR ---
Assessment Patient is a 54-year-old male who is alert and oriented. Patient informed me he was living with his sister prior to becoming homeless 3 months ago. Patient informed me he cannot return to his sister and does not know what he will do after discharged. Regarding history of meth, patient stated he has not consume drugs for over 1.5 months. Discussed with patient how to obtain service through the [facility] and local low cost medical clinics. Provided patient with community resources and offered her with taxi voucher within 30 miles and patient agreed. Patient did not accept resource. Advised patient if he would like to go to a longterm. Patient stated he does not want to go to a longterm at this time. Provided information to clothes closet and meal prior to discharge. Completed homeless assessment. Patient sign the homeless waiver. Patient verbalize understanding d/c plan. Addendum: 05/07/20 at 0954 by TAQUERIA BRAVO SS Amended: Links added.
[2020-05-07] MEDS: DULoxetine HCL 30 MG CAP PO SCH (10:35)
[2020-05-07] MEDS: AZITHROMYCIN 500MG/ 250ML 250 ML IV SCH (10:35)
[2020-05-07] MEDS: PANTOPRAZOLE 40 MG TAB PO SCH (10:35)
[2020-05-07] MEDS: ASPirin 81 mg TAB PO SCH (10:35)
[2020-05-07] MEDS: NIFEdipine ER 30 MG TAB PO SCH (10:36)
--- NOTE | 2020-05-07 12:00 | NUR ---
PATIENT ANGRY STATES THAT I, OR SOMEONE GAVE OUT HIS INFORMATION AND PASSWORD. PER THE CHART THERE IS NO PASSWORD AND NO CALLS HAVE BEEN TRANSFERRED BESIDES CM FOR HOMELESS PLACEMENT. I EXPLAINED TO PATIENT THAT I HAS NO IDEA WHAT HE WAS TALKING ABOUT, HOWEVER IF HE WOULD LIKE I CAN MAKE A NOTE THAT NO CALLS WILL BE TRANSFERRED. PATIENT HAS HIS OWN CELL PHONE IN WHICH HE HAS BEEN MAKING CALLS ALL DAY. I RELAYED MESSAGE TO FRONT END DEVELOPER DESIGNER THAT NO CALLS ARE TO BE TRANSFERRED TO ROOM PER HIS REQUEST.
--- NOTE | 2020-05-07 12:25 | NUR ---
DR Eddie GRAF DISCUSSED THE PLAN OF CARE WITH PATIENT AND PATIENT VERBALIZES HE DOES WANT TO GO TO A HOMELESS ASSISTED THAT HE WAS OFFERED. WILL LET CASE MANAGEMENT KNOW.
--- NOTE | 2020-05-07 12:35 | NUR ---
PER NA IN ROOM PATIENT STATES VIA TELEPHONE ONCE HE LEAVES HE WOULD KILL HIMSELF, HE VERBALLY INSULTED AIDE CALLING HER "A PIECE OF SHIT" JUST LIKE THE PHYSICIAN WHO IS ATTENDING. ALSO SAID THE THE PREVIOUS TELE PSYCH DID NOT EVALUATE HIM WELL CONSIDERING HE STILL HAS PLANE TO HARM HIMSELF. PATIENT MADE SEVERAL CALLS TO FAMILY/FRIENDS THAT IF THEY CALL HIM AND HE DOES NOT RESPOND THEY KNOW WHY. I NOTIFIED DR Eddie MCCLAIN ABOUT PATIENTS SUICIDAL IDEATION AND PER DR Eddie MCCLAIN PATIENT IS TO HAVE A STAT TELE PSYCH CONSULT. ORDERS PLACED.
[2020-05-07 13:00] VITALS: BP 157/91
--- NOTE | 2020-05-07 14:00 | NUR ---
TELE PSYCH COMPLETE
[2020-05-07 16:34] VITALS: BP 140/89
--- NOTE | 2020-05-07 17:00 | NUR ---
TELE PSYCH RECOMMENDATIONS FAXED TO DR Eddie MCCLAIN PER HIS REQUEST. [phone]
[2020-05-07] MEDS: TAMSULOSIN HYDROCHLORIDE 0.4 MG CAP PO SCH (17:53)
--- NOTE | 2020-05-07 20:00 | NUR ---
Opening Shift Note Assumed care of patient. Awake, alert and oriented x4. No S/S of distress/SOB or pain. Patient is on room air with even and unlabored respirations. Roy is off the floor, patent and draining clear, yellow urine. Instructed on POC and to call for assist PRN. Bed locked, in lowest position, call light within reach, side rails up x2. Sitter at bedside. Will continue to monitor for changes Q1hr and PRN.
[2020-05-07 22:00] VITALS: BP 130/76
[2020-05-07] MEDS: MIRTAZAPINE 30 MG TAB PO SCH (22:24)
[2020-05-07] MEDS: ATORVASTATIN 20 MG TAB PO SCH (22:24)
--- NOTE | 2020-05-07 22:30 | NUR ---
IV insertion IV access obtained, via clean sterile technique by inserting 20 gauge catheter at right AC after 1 attempt. IV secured properly. No trauma to site. Other IV removed, pressure gauze placed. Patient tolerated procedure well.
[2020-05-08] MEDS: ACCU-CHEK COMFORT CURVE STRIP VI SCH ×4 (00:26→11:22)
--- NOTE | 2020-05-08 00:30 | NUR ---
Blood sugar 58 8 ounces of orange juice given. Will continue to monitor
[2020-05-08] MEDS: InsuLIN REG 1unit/0.01ml Soln (100units/ml) SC SCH ×4 (04:52→11:22)
[2020-05-08 05:00] VITALS: BP 142/83
[2020-05-08 06:27] LABS: Albumin 2.6 g/dL (3.4-5.0); Potassium 5.2 mmol/L (3.5-5.1)
[2020-05-08 06:30] LABS: BUN/Creatinine Ratio 17.3; Bilirubin, Total 0.2 mg/dL (0.2-1.0); Total Protein 6.6 g/dL (6.4-8.2)
[2020-05-08] MEDS: GABAPENTIN 300 MG CAP PO SCH ×2 (06:38→13:48)
[2020-05-08] MEDS: INSULIN LANTUS (GLARGINE) 1 /0.01ml (100units/ml) SC SCH (07:21)
--- NOTE | 2020-05-08 07:48 | NUR ---
Opening Note Assumed pt care from NIDA RN. Pt is a/ox4 with no s/s of distress or SOB. Pt is currently sitting upright in bed with no complaints at this time. Sitter is present in room for safety. Roy is present, draining to gravity and free of kinks. Discussed POC with pt and pending Social Service consult for SNF placement. Safety measures maintained with call light within reach, bed in lowest position and side rails up. Will continue to monitor.
[2020-05-08 09:00] VITALS: BP 147/78
[2020-05-08] MEDS: ASPirin 81 mg TAB PO SCH (09:24)
[2020-05-08] MEDS: NIFEdipine ER 30 MG TAB PO SCH (09:24)
[2020-05-08] MEDS: PANTOPRAZOLE 40 MG TAB PO SCH (09:24)
[2020-05-08] MEDS: DULoxetine HCL 30 MG CAP PO SCH (09:24)
--- NOTE | 2020-05-08 13:20 | NUR ---
Dr Eddie Javed at Bedside MD to see pt. new orders given. Will implement.
[2020-05-08] MEDS ORDERED: DEXTROSE (50%) 50ML SYRG IV PRN (13:30)
--- NOTE | 2020-05-08 13:44 | NUR ---
D/C planning Regarding social service consult for SNF placement for [facility]. Faxed clinical information to [facility] and [facility]. Per Vj with [facility] patient has been accepted to room 224 bed B accepting Md, Dr. Cárdenas. Faxed transportation form request to [facility] requesting for a 15:30 picking tech time via [employer]. Informed Charge Nurse Ad. Obtain authorization from [facility] for SNF [id number] and Transportation [id number].
--- NOTE | 2020-05-08 14:12 | NUR ---
Report Called Report called to Pia at [facility], . All questions were answered and staff was made aware of ETA.
[2020-05-08 14:13] VITALS: BP 143/78
--- NOTE | 2020-05-08 14:40 | NUR ---
IV and Tele 67 D/C'ed IV to pt's R FA removed. Catheter was removed fully intact. Site is asymptomtic. Pressure was applied to site for 3 minutes with gauze and then wrapped in coban. Pt instructed to keep dressing on for 30 minutes; pt verbalized understanding. Tele 67 removed and sent back to ICU Staff made aware.
--- NOTE | 2020-05-08 15:23 | NUR ---
Pt D/C'ed Off Unit Pt d/c'ed off unit via transportation service. Report given to [employer]. Pt is a/ox4 with no s/s of distress or SOB. Pt aware of follow up appointments and continuation of care at SNF. Pt provided POM, belongings, education materials, and all questions were answered. IV and tele box was d/c'ed prior to d/c. Pt left with andrea.
[2020-05-08] MEDS ORDERED: ACCU-CHEK COMFORT CURVE STRIP VI SCH (17:00)
[2020-05-08] MEDS ORDERED: InsuLIN REG 1unit/0.01ml Soln (100units/ml) SC SCH ×2 (17:00→22:00)
== END 2020-05-08 15:23 | DRG 198 ==
LOC: EDBD 15:34 → ER 15:34 → TELE 15:35 → TELE-WESTW 05-03 14:23
PROVIDERS: ADMIT Nurse Practitioner; ATTEND Internal Medicine
DX: R07.9 Chest pain, unspecified (principal); J18.9 Pneumonia, unspecified organism; N17.0 Acute kidney failure with tubular necrosis; I12.9 Hypertensive chronic kidney disease with stage 1 through stage 4 chronic kidney disease, or unspecified chronic kidney disease; E87.5 Hyperkalemia; E78.5 Hyperlipidemia, unspecified; N18.4 Chronic kidney disease, stage 4 (severe); F32.9 Major depressive disorder, single episode, unspecified; E11.22 Type 2 diabetes mellitus with diabetic chronic kidney disease; N40.1 Benign prostatic hyperplasia with lower urinary tract symptoms; E11.65 Type 2 diabetes mellitus with hyperglycemia; N32.0 Bladder-neck obstruction; R33.8 Other retention of urine; E11.649 Type 2 diabetes mellitus with hypoglycemia without coma; E11.42 Type 2 diabetes mellitus with diabetic polyneuropathy; K74.60 Unspecified cirrhosis of liver; Z83.3 Family history of diabetes mellitus; Z95.0 Presence of cardiac pacemaker; Z79.899 Other long term (current) drug therapy; I25.2 Old myocardial infarction; Z20.828 Contact with and (suspected) exposure to other viral communicable diseases; I25.10 Atherosclerotic heart disease of native coronary artery without angina pectoris; R45.851 Suicidal ideations
CPT/HCPCS: 36415; 71046; 76775; 78582; 80048; 80053; 80307; 81001; 82010; 82306; 82550; 82570; 82962; 83036; 83690; 83735; 83880; 83970; 84100; 84132; 84154; 84156; 84300; 84484; 85025; 85379; 87081; 93005; 93970; G0378; J0610; J0696; J1815; J2405